=== PATIENT | female | born 1970 | race African-American/Black ===

== ENCOUNTER 2020-11-13 11:14 | Emergency (ER) | payer MEDICAID ==
[~2020-11-13] VITALS: Ht 162.6 cm; Wt 97.5 kg
[~2020-11-13 11:14] MED LIST: NOHOMEMEDICATIONS; XANAX 0.25 MG0.25 MG PO
[2020-11-13] MEDS ORDERED: ROXICODONE5 M2 PO (11:31)
[2020-11-13] MEDS ORDERED: TRAMADOL 50 MG50 MG PO (11:31)
[2020-11-13] MEDS ORDERED: AMBIEN5 MG PO (11:31)
[2020-11-13] MEDS ORDERED: NEURONTIN 300M300 M2 PO (11:32)
[2020-11-13 11:55] LABS: HEMATOCRIT 45.1 % (37.0-47.0); HEMOGLOBIN 15.1 gm/dL (12.0-15.0); MCH 27.8 pg (26.0-34.0); MCHC 33.4 g/dL (28.0-37.0); MCV 83.3 fL (80.0-100.0); MPV 7.4 fl. (7.2-11.1); NUCLEATED RBCS 0 /100WBC; PLATELET COUNT* 322 thou/uL (150-400); RBC 5.41 mil/uL (4.20-5.00); RDW-CV 15.9 % (10.5-14.5); WBC 10.7 thou/uL (4.0-11.0)
[2020-11-13] MEDS ORDERED: SPIRONOLACTONE25 MG PO (11:56)
[2020-11-13 12:04] LABS: CALCIUM 9.5 mg/dL (8.5-10.1); CREATININE 1.2 mg/dL (0.6-1.3)
[2020-11-13 12:09] LABS: ALBUMIN 3.4 g/dL (3.4-5.0); TOTAL BILIRUBIN 0.2 mg/dL (<0.1-1.0); TOTAL PROTEIN 8.2 g/dL (6.4-8.2)
[2020-11-13 12:46] LABS: ABSOLUTE EOSINOPHILS 0.2 thou/uL (0.0-0.7); ABSOLUTE MONOCYTES 0.5 thou/uL (0.0-1.2); ATYPICAL LYMPHS 10 %; PLATELET ESTIMATE ADEQUATE
[2020-11-13 12:48] LABS: LARGE PLATELETS FEW
[2020-11-13 12:49] LABS: GIANT PLATELETS OCCASIONAL
[2020-11-13 12:58] LABS: URINE BILIRUBIN NEGATIVE (Negative); URINE BLOOD TRACE (Negative); URINE CLARITY CLEAR; URINE COLOR YELLOW; URINE GLUCOSE-RANDOM NEGATIVE (Negative); URINE KETONES NEGATIVE (Negative); URINE LEUKOCYTES-REFLEX 1+ (Negative); URINE NITRITE-REFLEX NEGATIVE (Negative); URINE PROTEIN NEGATIVE (Negative); URINE SPECIFIC GRAVITY 1.025 (1.005-1.030); URINE UROBILINOGEN 0.2 E.U./dl (0.2-1.0)
[2020-11-13 13:04] LABS: SQUAMOUS >10 Many /LPF (0-3)
[2020-11-13 13:05] LABS: BACTERIA-REFLEX 1-9 Few /HPF (None Seen); CASTS None Seen /LPF (None Seen); URINE RBC 0-2 Rare /HPF (0-2); URINE WBC-REFLEX 6-15 Few /HPF (0-5)
[2020-11-13 13:06] LABS: CRYSTALS None Seen /LPF (None Seen)
[2020-11-13] MEDS ORDERED: KEFLEX500 M1 PO (13:08)
[2020-11-13] MEDS ORDERED: HYDROCHLOROTH12.5 M1 PO (13:08)
[2020-11-13 13:37] VITALS: BP 156/84
--- NOTE | 2020-11-13 16:33 | EKG ---
[place] [address] ELECTROCARDIOGRAM REPORT Name: NICOLE SANTANA Room: [facility]#: [id number] Admission: 11/13/20 Attend Phys: Discharge: 11/13/20 Date of : 74 Date of Service: 11/13/20 1141 Report #: [id number] THIS REPORT FOR: //name// 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: [facility] : 1970 Requested By: Bhavin Chavez Order Number: [id number] MD: Ruben Bruno Measurements Intervals [place] Rate: 96 P: 61 [place]: 160 QRS: 69 QRSD: 89 T: 32 QT: 353 QTc: 447 Interpretive Statements Sinus rhythm Probable left atrial enlargement Delayed R wave progression no previous ECG available for comparison Electronically Signed On 11-13-2020 16:33:43 TRAVEL GUIDE by Ruben Bruno [email or web address] <ELECTRONICALLY SIGNED> By: Ruben Bruno MD, [facility] 11/13/20 1633 1141 114 Ruben Bruno MD, [facility] /EPI
== END 2020-11-13 13:38 | disposition home or self-care (01) ==
LOC: M.ERS 11:14
PROVIDERS: Emergency Medicine Emergency Medical Services
DX: N39.0 Urinary tract infection, site not specified (principal); I10 Essential (primary) hypertension; R21 Rash and other nonspecific skin eruption; F17.210 Nicotine dependence, cigarettes, uncomplicated; Z79.899 Other long term (current) drug therapy

== ENCOUNTER 2021-06-28 13:30 | Emergency (ER) | payer MEDICAID ==
[~2021-06-28] VITALS: Ht 162.6 cm; Wt 104.3 kg
[~2021-06-28 13:30] MED LIST changes: +AMBIEN5 MG PO; +HYDROCHLOROTH12.5 M1 PO; +KEFLEX500 M1 PO; +NEURONTIN 300M300 M2 PO; +ROXICODONE5 M2 PO; +SPIRONOLACTONE25 MG PO; +TRAMADOL 50 MG50 MG PO
[2021-06-28] MEDS ORDERED: MEDROLDOSEPACK PO (15:18)
[2021-06-28 15:32] VITALS: BP 127/70
== END 2021-06-28 15:32 | disposition home or self-care (01) ==
LOC: M.ERS 13:30
DX: M72.2 Plantar fascial fibromatosis (principal); M76.62 Achilles tendinitis, left leg; F17.210 Nicotine dependence, cigarettes, uncomplicated; Z87.42 Personal history of other diseases of the female genital tract

== ENCOUNTER 2021-09-03 10:45 | Inpatient (IN) | payer MEDICAID ==
[~2021-09-03] VITALS: Ht 162.6 cm; Wt 87.5 kg
--- NOTE | ~2021-09-03 | CON ---
[address] [address] CONSULTATION Name: SANTANANICOLE Room: [address] IN .R.#: [id number] Admission: 09/03/21 Attend Phys: Gia Zuniga Discharge: Date of : 74 Report #: [id number] THIS REPORT FOR: cc: GARIMA SINHA,GARIMA Yap,Amber Swift MD ~ DATE OF CONSULTATION: 09/04/2021 REASON FOR CONSULTATION: Epigastric pain, nausea, vomiting and dyspepsia. HISTORY OF PRESENT ILLNESS: This is a 50-year-old female with history of ovarian and vulvar cancer, status post surgery and chemoradiation therapy, which was completed in 2019. The patient reports that she presented to the emergency room because she had significant amount of epigastric pain, nausea, vomiting and was unable to eat. She also had noticed that her urine color had turned dark. She denies any hematochezia or melena. She was found to be anemic with hemoglobin of 10. She has never had upper or lower endoscopy. PAST MEDICAL HISTORY: Significant for history of ovarian and vulvar cancer, status post surgery and chemoradiation, hypertension, insomnia, chronic pain, dysuria. ALLERGIES: No known drug allergy. MEDICATIONS: Please refer to MAR. SOCIAL HISTORY: The patient has history of vulvar and ovarian cancer and has been treated for the same and currently in remission, currently is in remission. The patient denies tobacco or alcohol use. FAMILY HISTORY: Negative for GI malignancy. PHYSICAL EXAMINATION: VITAL SIGNS: Reveals blood pressure of 114/66, respirations 18, pulse 119, temperature 97.4. LUNGS: Clear. CARDIOVASCULAR: Regular. ABDOMEN: Soft, tender to palpation in the epigastric region. Bowel sounds are positive. NEUROLOGIC: The patient is alert and oriented x 3. LABORATORY DATA: Reveal sodium of 139, potassium 4.0, BUN is 20, creatinine 1.3, AST is 30, ALT is 30, alkaline phosphatase 122, lipase is 141. Iron saturation is 15. Serum iron is 22, TIBC is 148. UA reveals evidence [place] [address] CONSULTATION Name: NICOLE SANTANA Room: [address] IN [facility]#: [id number] Admission: 09/03/21 Attend Phys: Gia Zuniga Discharge: Date of : 74 Report #: [id number] IMAGING: CT of abdomen and pelvis was obtained. CT of abdomen and pelvis reveals fluid collection arising from the pylorus for pyloric channel would be suggestive of pyloric channel ulcer. There is no evidence of acute inflammatory process. Uterus and ovaries are atrophic, consistent with the patient's age. ASSESSMENT AND PLAN: The patient with abdominal pain, dyspepsia, and anemia of iron deficiency. We will consider upper scope tomorrow at 8:00. She will need a colonoscopy at some point as she is anemic. By: 1523 1953Amber Yap MD /kayy
[~2021-09-03 10:45] MED LIST changes: +MEDROLDOSEPACK PO
[2021-09-03 11:12] VITALS: BP 146/101
[2021-09-03] MEDS ORDERED: FLUOXETINE HCL40 MG PO (11:19)
[2021-09-03] MEDS ORDERED: DICLOFENAC SOD PO (11:19)
[2021-09-03 11:37] LABS: URINE BLOOD 1+ (Negative); URINE CLARITY CLEAR; URINE COLOR YELLOW; URINE GLUCOSE-RANDOM NEGATIVE (Negative); URINE KETONES NEGATIVE (Negative); URINE NITRITE-REFLEX NEGATIVE (Negative); URINE PROTEIN 1+ (Negative); URINE SPECIFIC GRAVITY >= 1.030 (1.005-1.030)
[2021-09-03 11:44] LABS: ABSOLUTE BASOPHILS 0.1 thou/uL (0.0-0.2); ABSOLUTE LYMPHOCYTES 3.1 thou/uL (0.8-5.3); ABSOLUTE MONOCYTES 0.9 thou/uL (0.0-1.2); ABSOLUTE NEUTROPHILS 10.6 thou/uL (1.6-8.1); BASOPHILS 0.9 %; EOSINOPHILS 0.3 %; HEMATOCRIT 33.6 % (37.0-47.0); HEMOGLOBIN 10.8 gm/dL (12.0-15.0); LYMPHOCYTES 20.9 %; MCH 23.8 pg (26.0-34.0); MCHC 32.2 g/dL (28.0-37.0); MCV 73.9 fL (80.0-100.0); MONOCYTES 6.2 %; MPV 7.4 fl. (7.2-11.1); NUCLEATED RBCS 0 /100WBC; PLATELET COUNT* 451 thou/uL (150-400); POLYS 71.7 %; RBC 4.55 mil/uL (4.20-5.00); RDW-CV 14.8 % (10.5-14.5); WBC 14.8 thou/uL (4.0-11.0)
[2021-09-03 11:47] LABS: URINE BILIRUBIN 1+ (Negative); URINE LEUKOCYTES-REFLEX 2+ (Negative)
[2021-09-03 11:48] LABS: CASTS None Seen /LPF (None Seen); SQUAMOUS 4-10 Moderate /LPF (0-3)
[2021-09-03 11:49] LABS: CRYSTALS None Seen /LPF (None Seen); URINE RBC 3-10 Few /HPF (0-2)
[2021-09-03 11:51] LABS: CALCIUM 10.1 mg/dL (8.5-10.1); CREATININE 1.3 mg/dL (0.6-1.3)
[2021-09-03 11:56] LABS: ALBUMIN 2.8 g/dL (3.4-5.0); TOTAL BILIRUBIN 0.3 mg/dL (<0.1-1.0); TOTAL PROTEIN 9.1 g/dL (6.4-8.2)
--- NOTE | 2021-09-03 11:59 | EKG ---
[place] [address] ELECTROCARDIOGRAM REPORT Name: NICOLE SANTANA Room: [facility]#: [id number] Admission: 09/03/21 Attend Phys: Discharge: Date of : 74 Date of Service: 09/03/21 1140 Report #: [id number] THIS REPORT FOR: //name// [facility] ED Test Date: 2021-09-03 Test Time: 11:40:28 Pat Name: NICOLE SANTANA Department: Room: Gender: Cherry Dipper: TJBradley : 1970 Requested By: Ching Huang Order Number: [id number] MD: Cristhian Zamora Measurements Intervals [place] Rate: 127 P: 65 GA: 154 QRS: 49 QRSD: 85 T: 148 QT: 297 QTc: 432 Interpretive Statements Sinus tachycardia Left atrial enlargement Probable left ventricular hypertrophy Abnrm T, consider LV strain or ischemia Compared to ECG 11/13/2020 11:41:30 Possible ischemia now present Sinus rate has increased Poor R-wave progression no longer present Electronically Signed On 09-03-2021 11:59:36 LAYOUT WORKER by Cristhian Zamora [email or web address] <ELECTRONICALLY SIGNED> By: Cristhian Zamora MD, FACC 09/03/21 1159 1140 1140 Cristhian Zamora MD, FACC /EPI
[2021-09-03] MEDS ORDERED: PROSCAR 5MG TABL5 MG PO (15:06)
[2021-09-03] MEDS ORDERED: NORVASC10 MG PO (15:06)
[2021-09-03] MEDS ORDERED: MICARDIS 80 MG80 MG PO (15:07)
[2021-09-03] MEDS ORDERED: LIDOCAINE 2%2 %/5 GM (15:08)
[2021-09-03 19:12] VITALS: BP 179/74
[2021-09-03 23:35] VITALS: BP 168/68
[2021-09-04 00:19] VITALS: BP 148/76
[2021-09-04 04:00] VITALS: BP 126/54
[2021-09-04 08:00] VITALS: BP 141/70
--- NOTE | 2021-09-04 09:39 | NUR ---
Pt is admitted to the hospital on 09/03/21 with Sepsis due to a UTI and Pneumonia. Pt is alert and oriented. Pt lives in a Condo with boyfriend (Livan). Pt has a hx of ovarian and vulvar cancer. Pt reports no hx of HH, DME, and SNF. Pt reports she saw her PCP - 1 month ago. Pt fills her prescriptions at [facility]. Discussed at length in home assistance under pt's [place] Medicaid. She is asking about assistance she can receive in her home. Will start the referral process. CM to continue following for discharge planning.
--- NOTE | 2021-09-04 11:50 | EKG ---
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: : 1970 Requested By: Caryn Novak Order Number: [id number] Zeeshan MD: Cristhian Zamora Measurements Intervals [place] Rate: 119 P: 81 [place]: 157 QRS: 60 QRSD: 87 T: 197 QT: 320 QTc: 451 Interpretive Statements Sinus tachycardia Probable LVH with secondary repol abnrm Compared to ECG 09/03/2021 11:40:28 Atrial abnormality no longer present Electronically Signed On 09-04-2021 11:50:04 FOUR CORNER FORMER MACHINE OPERATOR by Crsithian Zamora [email or web address] <ELECTRONICALLY SIGNED> By: Cristhian Zamora MD, [facility] 09/04/21 1150 0946 0946 Cristhian Zamora MD, [facility] /EPI
[2021-09-04 12:00] VITALS: BP 114/66
[2021-09-04 16:00] VITALS: BP 124/62
[2021-09-04 20:00] VITALS: BP 102/60
[2021-09-05] VITALS: BP 123/53
[2021-09-05 04:00] VITALS: BP 122/56
[2021-09-05 04:34] LABS: HEMATOCRIT 27.7 % (37.0-47.0); MCH 23.9 pg (26.0-34.0); MCHC 31.4 g/dL (28.0-37.0); MPV 7.3 fl. (7.2-11.1); RBC 3.65 mil/uL (4.20-5.00); RDW-CV 14.8 % (10.5-14.5); WBC 10.2 thou/uL (4.0-11.0)
[2021-09-05 04:44] LABS: HEMOGLOBIN 8.7 gm/dL (12.0-15.0)
--- NOTE | 2021-09-05 05:08 | NUR ---
ASSUMED CARE OF PT AFTER REPORT AT 1930. PT A&OX4. VSS. PHYSICAL ASSESSMENT COMPLETED AND CHARTED. PT ON RA. PT TRACING ST/ST- HR 120'S-140'S WITH ACTIVITY. PT UPADLIB TO RESTROOM. PT WITH ABDOMINAL PAIN-MED GIVEN PER NOV. INSTRUCTED ON NPO POST MIDNIGHT FOR EGD TODAY-COMMUNICATES UNDERSTANDING. LORETO LIGHT WITHIN REACH.
[2021-09-05 05:11] LABS: CREATININE 1.1 mg/dL (0.6-1.3); MAGNESIUM 1.5 mg/dL (1.8-2.4); POTASSIUM 3.4 mmol/L (3.5-5.1)
--- NOTE | 2021-09-05 07:20 | NUR ---
CHANGE OF SHIFT REPORT GIVEN PATIENT SEEN IN BED WATCHING TV ASSUMED PATIENT CARE
[2021-09-05 08:00] VITALS: BP 117/59
[2021-09-05 11:25] VITALS: BP 142/70
[2021-09-05 15:50] VITALS: BP 117/59
[2021-09-05 20:00] VITALS: BP 105/57
[2021-09-06 00:16] VITALS: BP 103/69
[2021-09-06 04:00] VITALS: BP 110/73
--- NOTE | 2021-09-06 05:52 | NUR ---
ASSUMED CARE OF PT AFTER REPORT AT 1930. PT A&OX4. VSS. PHYSICAL ASSESSMENT COMPLETED AND CHARTED. PT ON RA. PT TRACING SR/ST-HR 140'S-150'S WITH ACTIVITY. PT COMPLAINED OF VAGINAL PAIN-MED GIVEN PER MAR. MAINTAINED ON FULL LIQUIDS ORDERED. NO EPISODE OF NAUSEA/VOMITING. CALL LIGHT WITHIN REACH.
--- NOTE | 2021-09-06 07:10 | NUR ---
CHNAGE OF SHIFT REPORT GIVEN PATIENT SEEN AT BEDSIDE, IN BED ON PHONE ASSUMED PATIENT CARE
[2021-09-06 08:00] VITALS: BP 114/68
[2021-09-06 12:09] VITALS: BP 106/54
[2021-09-06] MEDS ORDERED: CEFDINIR300 MG PO (12:57)
[2021-09-06 13:18] VITALS: BP 106/54
[2021-09-06 15:50] VITALS: BP 117/61
--- NOTE | 2021-09-06 17:00 | NUR ---
discharge to home iv abd heart monitor removed rosio ventura returned dc instructions given and signed copies given patient walked out to waiting car
[2021-09-07 19:07] LABS: GLOBULIN TOTAL 4.1 g/dL (2.2-3.9); M-SPIKE Not Observed g/dL (Not Observed)
== END 2021-09-06 17:00 | disposition home or self-care (01) | DRG 871 ==
LOC: M.ERS 10:45 → M.2W 14:47 → M.TBA-ER 14:47 → M.2W 23:41
PROVIDERS: Internal Medicine; Physician Assistant; ADMIT Internal Medicine; ATTEND Internal Medicine
PROC: 0DB98ZX Excision of Duodenum, Via Natural or Artificial Opening Endoscopic, Diagnostic (ICD-10-PCS; principal; 2021-09-05)
DX: A41.9 Sepsis, unspecified organism (principal); N17.0 Acute kidney failure with tubular necrosis; J15.6 Pneumonia due to other Gram-negative bacteria; N39.0 Urinary tract infection, site not specified; E44.1 Mild protein-calorie malnutrition; G89.29 Other chronic pain; R10.30 Lower abdominal pain, unspecified; G47.00 Insomnia, unspecified; R10.13 Epigastric pain; D50.9 Iron deficiency anemia, unspecified; I10 Essential (primary) hypertension; F41.9 Anxiety disorder, unspecified; G62.9 Polyneuropathy, unspecified; R73.9 Hyperglycemia, unspecified; K44.9 Diaphragmatic hernia without obstruction or gangrene; K26.9 Duodenal ulcer, unspecified as acute or chronic, without hemorrhage or perforation; Z85.43 Personal history of malignant neoplasm of ovary; Z85.89 Personal history of malignant neoplasm of other organs and systems; Z92.3 Personal history of irradiation; Z68.33 Body mass index [BMI] 33.0-33.9, adult; Z20.822 Contact with and (suspected) exposure to COVID-19; Z28.21 Immunization not carried out because of patient refusal

== ENCOUNTER 2021-09-26 19:53 | Inpatient (IN) | payer MEDICAID ==
[~2021-09-26] VITALS: Ht 162.6 cm; Wt 90.7 kg
--- NOTE | ~2021-09-26 | CON ---
[address] [address] CONSULTATION Name: NICOLE SANTANA Room: [address] IN M.R.#: [id number] Admission: 09/26/21 Attend Phys: Travon Pink MD Discharge: Date of : 74 Report #: [id number] THIS REPORT FOR: cc: GARIMA SINHA,GARIMA Yap,Amber Swift MD ~ DATE OF CONSULTATION: 09/27/2021 REASON FOR CONSULTATION: Anemia and melena with abdominal pain. HISTORY OF PRESENT ILLNESS: This is a 50-year-old female with history of abdominal pain and melena, who underwent upper endoscopy 3 weeks ago. She was found to have a large ulcer in the second portion of the duodenum. She was subsequently placed on Carafate and double dose of PPI and was told to follow up in 2 months for upper and lower endoscopy. The patient reports that she only took 10 pills and did not complete her regimen. She started having abdominal pain and black stool. She denies any nausea, vomiting or diarrhea. She had a diet today and also had BM earlier today. PAST MEDICAL HISTORY: Significant for a history of vulvar cancer, status post chemoradiation; ovarian cancer; hypertension; duodenal ulcer; anxiety; neuropathy. ALLERGIES: No known drug allergy. MEDICATIONS: Please refer to MAR. SOCIAL HISTORY: The patient denies alcohol use, but admits to tobacco use. FAMILY HISTORY: Negative for GI malignancy. PHYSICAL EXAMINATION: VITAL SIGNS: Reveal normal vitals. LUNGS: Clear. CARDIOVASCULAR: Regular. ABDOMEN: Soft, tender to palpation in the periumbilical region. Bowel sounds are positive. NEUROLOGIC: The patient is alert and oriented x 3. There is no focal neurologic deficit. LABORATORY DATA: Reveal sodium of 137, potassium 3.5, BUN is 18, creatinine 1.3, glucose is 133. Liver function tests are all within normal limits. WBC is 12.7 with hemoglobin of 8.4, down from 10.8 on 09/03. Platelets are 302. IMAGING: CT angiogram of abdomen and pelvis [place]. [place] [address] CONSULTATION Name: NICOLE SANTANA Room: [address] IN [facility]#: [id number] Admission: 09/26/21 Attend Phys: Travon Pink MD Discharge: Date of : 74 Report #: [id number] atherosclerotic calcification of the abdominal aorta without dissection or aneurysm. There is also duodenal diverticulum and multiple masses within the uterus, possibly representing leiomyomas. ASSESSMENT AND PLAN: The patient with abdominal pain, drop in hemoglobin since 3 weeks ago and known history of duodenal ulcer. We will consider upper endoscopy to evaluate the ulcer and colonoscopy since the patient has lower abdominal pain. We will make further recommendation based on finding. Meanwhile, she should continue her PPI therapy. By: 1256 1909Amber Yap MD /kayy
[~2021-09-26 19:53] MED LIST changes: +CEFDINIR300 MG PO; +DICLOFENAC SOD PO; +FLUOXETINE HCL40 MG PO; +LIDOCAINE 2%2 %/5 GM; +MICARDIS 80 MG80 MG PO; +NORVASC10 MG PO; +PROSCAR 5MG TABL5 MG PO
[2021-09-26 19:57] VITALS: BP 163/62
[2021-09-26 20:43] LABS: EOSINOPHILS 0.1 %; MCV 73.2 fL (80.0-100.0); MPV 7.2 fl. (7.2-11.1)
[2021-09-26 20:44] LABS: ABSOLUTE BASOPHILS 0.1 thou/uL (0.0-0.2); ABSOLUTE LYMPHOCYTES 2.1 thou/uL (0.8-5.3); ABSOLUTE MONOCYTES 0.8 thou/uL (0.0-1.2); ABSOLUTE NEUTROPHILS 10.5 thou/uL (1.6-8.1); BASOPHILS 1.1 %; HEMATOCRIT 24.7 % (37.0-47.0); LYMPHOCYTES 15.7 %; MCH 23.6 pg (26.0-34.0); MCHC 32.2 g/dL (28.0-37.0); MONOCYTES 5.8 %; NUCLEATED RBCS 0 /100WBC; PLATELET COUNT* 326 thou/uL (150-400); POLYS 77.3 %; RBC 3.38 mil/uL (4.20-5.00); RDW-CV 15.5 % (10.5-14.5); WBC 13.6 thou/uL (4.0-11.0)
[2021-09-26 20:55] LABS: CREATININE 0.9 mg/dL (0.6-1.3); POTASSIUM 3.3 mmol/L (3.5-5.1)
[2021-09-26 21:05] LABS: ALBUMIN 2.4 g/dL (3.4-5.0); TOTAL BILIRUBIN 0.3 mg/dL (<0.1-1.0); TOTAL PROTEIN 7.5 g/dL (6.4-8.2)
[2021-09-26 23:07] LABS: URINE BILIRUBIN NEGATIVE (Negative); URINE BLOOD 3+ (Negative); URINE COLOR YELLOW; URINE GLUCOSE-RANDOM NEGATIVE (Negative); URINE KETONES 1+ (Negative); URINE LEUKOCYTES-REFLEX 1+ (Negative); URINE NITRITE-REFLEX NEGATIVE (Negative); URINE PROTEIN NEGATIVE (Negative); URINE SPECIFIC GRAVITY <= 1.005 (1.005-1.030); URINE UROBILINOGEN 0.2 E.U./dl (0.2-1.0)
[2021-09-26 23:12] LABS: URINE CLARITY SL HAZY
[2021-09-26 23:15] LABS: RENAL EPITHELIAL CELLS 0-3 Few /LPF (None Seen); SQUAMOUS 0-3 Few /LPF (0-3); TRANSITIONAL EPITHEL CELL 0-3 Few /LPF (None Seen); URINE WBC-REFLEX >25 Many /HPF (0-5)
[2021-09-26 23:16] LABS: BACTERIA-REFLEX >30 Many /HPF (None Seen); COARSE GRANULAR CASTS 0-3 Few /LPF (None Seen); CRYSTALS None Seen /LPF (None Seen); FINE GRANULAR CASTS 0-3 Few /LPF (None Seen); MUCUS 4-6 Moderate strn/LPF (None Seen); YEAST-REFLEX Present (None Seen)
[2021-09-27 04:00] VITALS: BP 128/69
[2021-09-27 07:20] VITALS: BP 123/69
--- NOTE | 2021-09-27 08:23 | NUR ---
REFER TO BLOOD TRANSFUSION RECORD FOR FURTHER DOCUMENTATION
[2021-09-27 08:59] VITALS: BP 141/69
--- NOTE | 2021-09-27 10:10 | EKG ---
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: [place] : 1970 Requested By: Sherie Aguilar Order Number: [id number] MD: Darrell Adams Measurements Intervals [place] Rate: 127 P: 71 VT: 124 QRS: 66 QRSD: 78 T: 49 QT: 337 QTc: 491 Interpretive Statements Sinus tachycardia Left ventricular hypertrophy Borderline prolonged QT interval Compared to ECG 09/04/2021 09:46:50 No significant changes Electronically Signed On 09-27-2021 10:10:48 MATERIAL HANDLER 2ND SHIFT by Darrell Adams [email or web address] <ELECTRONICALLY SIGNED> By: Darrell Adams MD, [facility] 09/27/21 1010 01 01 Darrell Adams MD, [facility] /EPI
[2021-09-27 11:00] VITALS: BP 138/73
[2021-09-27 13:18] LABS: HEMATOCRIT 25.8 % (37.0-47.0); HEMOGLOBIN 8.4 gm/dL (12.0-15.0); MCH 24.8 pg (26.0-34.0); MCHC 32.6 g/dL (28.0-37.0); MPV 7.1 fl. (7.2-11.1); NUCLEATED RBCS 0 /100WBC; PLATELET COUNT* 302 thou/uL (150-400); RBC 3.39 mil/uL (4.20-5.00); RDW-CV 17.2 % (10.5-14.5); WBC 12.7 thou/uL (4.0-11.0)
[2021-09-27 13:32] LABS: ALBUMIN 2.3 g/dL (3.4-5.0); CALCIUM 8.9 mg/dL (8.5-10.1); CREATININE 1.3 mg/dL (0.6-1.3); MAGNESIUM 1.5 mg/dL (1.8-2.4); POTASSIUM 3.5 mmol/L (3.5-5.1); TOTAL BILIRUBIN 0.4 mg/dL (<0.1-1.0); TOTAL PROTEIN 7.1 g/dL (6.4-8.2)
[2021-09-27 13:49] LABS: ABSOLUTE MONOCYTES 1.1 thou/uL (0.0-1.2); ABSOLUTE NEUTROPHILS 9.5 thou/uL (1.6-8.1); ANISOCYTOSIS 1+; HYPOCHROMASIA 1+; METAMYELOCYTES 1 %; MYELOCYTES 1 %; PLATELET ESTIMATE ADEQUATE
[2021-09-27 20:00] VITALS: BP 120/63
[2021-09-28] VITALS: BP 126/66
[2021-09-28 04:00] VITALS: BP 133/62
[2021-09-28 04:21] LABS: HEMATOCRIT 23.3 % (37.0-47.0); HEMOGLOBIN 7.7 gm/dL (12.0-15.0); MCH 24.8 pg (26.0-34.0); MCHC 32.8 g/dL (28.0-37.0); MCV 75.5 fL (80.0-100.0); RBC 3.09 mil/uL (4.20-5.00); WBC 10.9 thou/uL (4.0-11.0)
--- NOTE | 2021-09-28 05:58 | NUR ---
Alert and oriented x 4. She has been doing a bowel prep. She has mostly been drinking GoLytely all of this shift. BM is dark brown and liquid. She is going to be NPO at 0800. She did request pain and nausea med x 1 this shift. IV in her L antecubital began to leak and was painful. New IV started, 22G in L wrist/forearm. Will continue to observe.
[2021-09-28 08:30] VITALS: BP 111/51
[2021-09-28 11:54] VITALS: BP 127/67
--- NOTE | 2021-09-28 17:34 | NUR ---
CM ASSESSMENT: PT A&O, INDEPENDENT WITH ADL'S, AND ACTIVE. PT RESIDES AT HOME WITH HER SIGNIGIFICANT OTHER. PT USES 0 DME. PT HAS 0 HX OF HH OR SNF. NO CM D/C PLANNING NEEDS. CM WILL REMAIN AVAILABLE TO ASSIST AND FOLLOW NEEDED.
[2021-09-28 20:00] VITALS: BP 131/70
[2021-09-29 01:02] VITALS: BP 157/75
[2021-09-29 06:13] VITALS: BP 125/66
[2021-09-29 08:00] VITALS: BP 135/65
--- NOTE | 2021-09-29 11:15 | NUR ---
Nutrition: Pt admitted with GIB. Seen for wt change consult. Pt stated she usually weighs 230#, but was told here that she weighs 200#. She had not noticed significant wt loss, but said that some loss might be d/t "Covid and the ulcer." She is quite happy to have lost some wt, and doesn't feel that she will lose anymore. She is toelrating regular diet now, good po intake. Recommended MVI. Labs, meds noted. Low risk.
[2021-09-29 11:48] LABS: ABSOLUTE BASOPHILS 0.1 thou/uL (0.0-0.2); ABSOLUTE EOSINOPHILS 0.1 thou/uL (0.0-0.7); ABSOLUTE LYMPHOCYTES 2.4 thou/uL (0.8-5.3); ABSOLUTE MONOCYTES 0.6 thou/uL (0.0-1.2); ABSOLUTE NEUTROPHILS 7.3 thou/uL (1.6-8.1); BASOPHILS 1.4 %; EOSINOPHILS 1.1 %; HEMATOCRIT 23.2 % (37.0-47.0); HEMOGLOBIN 7.4 gm/dL (12.0-15.0); LYMPHOCYTES 22.8 %; MCH 24.5 pg (26.0-34.0); MCV 76.5 fL (80.0-100.0); MONOCYTES 5.6 %; MPV 7.3 fl. (7.2-11.1); NUCLEATED RBCS 0 /100WBC; PLATELET COUNT* 299 thou/uL (150-400); POLYS 69.1 %; RBC 3.03 mil/uL (4.20-5.00); RDW-CV 17.2 % (10.5-14.5); WBC 10.6 thou/uL (4.0-11.0)
[2021-09-29 13:04] VITALS: BP 136/70
--- NOTE | 2021-09-29 13:05 | NUR ---
PLAN OF CARE: PT NOT MEDICALLY STABLE FOR D/C TODAY. GI CONSULTED. NO CM D/C PLANNING NEEDS ANTICIPATED. CM WILL REMAIN AVAILABLE TO ASSIST AND FOLLOW NEEDED.
[2021-09-29 17:38] VITALS: BP 144/72
--- NOTE | 2021-09-29 18:08 | NUR ---
PT PROGRESSING WELL TOWARDS DC GOALS. PT UP AD RONNI IN HER ROOM WITH STEADY GAIT. PT TOOK A SHOWER THIS AFTERNOON, WITHOUT DIFFICULTY. VSS AFEBRILE. PT CONTINUES TO BE SR ON THE TELE MONITOR.
[2021-09-29 19:37] VITALS: BP 122/68
[2021-09-30 02:25] VITALS: BP 136/64
[2021-09-30 04:51] LABS: ABSOLUTE BASOPHILS 0.1 thou/uL (0.0-0.2); ABSOLUTE EOSINOPHILS 0.2 thou/uL (0.0-0.7); ABSOLUTE LYMPHOCYTES 2.2 thou/uL (0.8-5.3); ABSOLUTE MONOCYTES 0.7 thou/uL (0.0-1.2); ABSOLUTE NEUTROPHILS 6.9 thou/uL (1.6-8.1); BASOPHILS 0.6 %; EOSINOPHILS 1.8 %; HEMATOCRIT 21.6 % (37.0-47.0); HEMOGLOBIN 7.1 gm/dL (12.0-15.0); LYMPHOCYTES 21.9 %; MCH 24.9 pg (26.0-34.0); MCHC 32.7 g/dL (28.0-37.0); MCV 76.3 fL (80.0-100.0); MONOCYTES 6.5 %; MPV 7.1 fl. (7.2-11.1); NUCLEATED RBCS 0 /100WBC; PLATELET COUNT* 295 thou/uL (150-400); POLYS 69.2 %; RBC 2.83 mil/uL (4.20-5.00); RDW-CV 17.2 % (10.5-14.5)
--- NOTE | 2021-09-30 04:59 | NUR ---
PATIENT HAS REMAINED ALERT AND ORIENTED X 4 THROUGHOUT THE SHIFT AND RESTING QUIETLY ON HOURLY ROUNDS. MEDICATED X 1 FOR RECTAL/VULVA PAIN WITH BM'S X 1 TO GOOD EFFECT. MEDS PER ORDER. SR ON THE MONITOR. HOPES FOR DISCHARGE TODAY.
[2021-09-30 05:22] LABS: % SATURATION 15 % (20-39); IRON 21 ug/dL (50-175)
[2021-09-30 06:43] VITALS: BP 131/72
[2021-09-30] MEDS ORDERED: CARAFATE 1 GM TA1 G1 PO (08:03)
[2021-09-30] MEDS ORDERED: PROTONIX40 M2 PO (08:03)
[2021-09-30] MEDS ORDERED: MIRALAX17 GM PO (08:03)
[2021-09-30 08:05] VITALS: BP 142/71
[2021-09-30 08:48] LABS: HEMATOCRIT 22.8 % (37.0-47.0); HEMOGLOBIN 7.3 gm/dL (12.0-15.0); MCH 24.7 pg (26.0-34.0); MCHC 32.2 g/dL (28.0-37.0); MCV 76.7 fL (80.0-100.0); MPV 7.2 fl. (7.2-11.1); RBC 2.97 mil/uL (4.20-5.00); RDW-CV 17.2 % (10.5-14.5); WBC 9.5 thou/uL (4.0-11.0)
--- NOTE | 2021-09-30 10:10 | NUR ---
PLAN OF CARE: CM CONTINUES TO FOLLOW FOR CM D/C PLANNING NEEDS. NO CM D/C PLANNING NEEDS ANTICIPATED AT THIS TIME. PT TO D/C HOME WITH SELF-CARE WHEN MEDICALLY STABLE. CM WILL REMAIN AVAILABLE TO ASSIST AND FOLLOW NEEDED.
[2021-09-30 11:54] VITALS: BP 129/62
--- NOTE | 2021-09-30 14:49 | NUR ---
THIS RN REACHED OUT TO DR STEVE TO ASK IF PT CLEAR FROM GI TO D/C
[2021-09-30 14:54] VITALS: BP 129/62
--- NOTE | 2021-09-30 14:57 | NUR ---
dr Yap ok with d/c. Dr Villa contacted to clarify if pt needs PO abx on d/c or not. Awaiting call back from Allen.
--- NOTE | 2021-09-30 15:27 | NUR ---
WENT OVER D/C PAPERWORK WITH PT. PT VERBALIZED UNDERSTNADING. ALL QUESTIONS ANSWERED. IV AND TELE REMOVED.
[2021-10-01 07:08] LABS: GLYCOHEMOGLOBIN (HGB A1C) 5.6 % (4.8-5.6)
--- NOTE | 2021-10-01 09:08 | PATH ---
[address] [address] PATHOLOGY RPT PROCEDURE Name: NICOLE POTTER Room: [address] IN .R.#: [id number] Admission: 09/26/21 Date of : 74 Discharge: 09/30/21 Report #: [id number] Path Case #: [id number] [facility] Accession Number: [id number] . 01 Material submitted: . duodenum - DUODENAL ULCER . 01 Clinical history: . EGD AND COLONOSCOPY . 02 Diagnosis: Duodenal ulcer biopsy: - Severe nonspecific active duodenitis, negative for granulomas, viral inclusions and dysplasia/adenomatous change. (LEANDRO:tino; 09/30/2021) QMS 09/30/2021 1157 Local . 02 Electronically signed: . Jc Rivera MD, Pathologist NPI- [id number] . 01 Gross description: . The specimen is received in formalin, labeled "Jewel Potterlondra, duodenal ulcer BX". Received is a single segment of pale tejada tissue measuring 0.3 cm in maximum dimensions. The specimen is entirely submitted in cassette A1. ([facility]; 09/29/2021) NRI/NRI 09/29/2021 2147 Local . 02 Pathologist provided ICD-10: K29.80 . 02 CPT . 738280 Specimen Comment: A courtesy copy of this report has been sent to [phone], [phone] Specimen Comment: [phone], Specimen Comment: Report sent to , DR SINHA / DR SALAZAR Specimen Comment: A duplicate report has been generated due to demographic updates. Performed at: [address] [place] [id number] [facility] [address], [place] [id number] MD Severo Francis MD Phone: [phone] Performed at: 02 [facility] [address], [place], [place] [id number] MD Jc Rivera MD Phone: [phone]
== END 2021-09-30 15:48 | disposition home or self-care (01) | DRG 871 ==
LOC: M.ERS 19:53 → M.2W 23:16 → M.TBA-ER 23:16 → M.2W 09-27 09:23
PROVIDERS: Internal Medicine; Internal Medicine Gastroenterology; Nurse Practitioner Family; ADMIT Internal Medicine; ATTEND Internal Medicine
PROC: 30233N1 Transfusion of Nonautologous Red Blood Cells into Peripheral Vein, Percutaneous Approach (ICD-10-PCS; principal; 2021-09-27)
PROC: 0DB98ZX Excision of Duodenum, Via Natural or Artificial Opening Endoscopic, Diagnostic (ICD-10-PCS; 2021-09-28)
PROC: 0DJD8ZZ Inspection of Lower Intestinal Tract, Via Natural or Artificial Opening Endoscopic (ICD-10-PCS; 2021-09-28)
DX: A41.9 Sepsis, unspecified organism (principal); K26.4 Chronic or unspecified duodenal ulcer with hemorrhage; N30.00 Acute cystitis without hematuria; G89.29 Other chronic pain; M79.606 Pain in leg, unspecified; I10 Essential (primary) hypertension; F41.9 Anxiety disorder, unspecified; G62.9 Polyneuropathy, unspecified; E83.42 Hypomagnesemia; R73.9 Hyperglycemia, unspecified; E66.9 Obesity, unspecified; K44.9 Diaphragmatic hernia without obstruction or gangrene; K64.4 Residual hemorrhoidal skin tags; K64.8 Other hemorrhoids; D50.9 Iron deficiency anemia, unspecified; Z85.43 Personal history of malignant neoplasm of ovary; Z82.49 Family history of ischemic heart disease and other diseases of the circulatory system; Z92.3 Personal history of irradiation; Z92.21 Personal history of antineoplastic chemotherapy; Z68.34 Body mass index [BMI] 34.0-34.9, adult; Z20.822 Contact with and (suspected) exposure to COVID-19

== ENCOUNTER 2021-10-11 15:25 | Emergency (ER) | payer MEDICAID ==
[~2021-10-11] VITALS: Ht 162.6 cm; Wt 90.7 kg
[~2021-10-11 15:25] MED LIST changes: +CARAFATE 1 GM TA1 G1 PO; +MIRALAX17 GM PO; +PROTONIX40 M2 PO
[2021-10-11] MEDS ORDERED: PERCOCET 5-3251 EACH PO (16:29)
[2021-10-11 16:45] VITALS: BP 153/82
== END 2021-10-11 16:46 | disposition home or self-care (01) ==
LOC: M.ERS 15:25
DX: K62.89 Other specified diseases of anus and rectum (principal); I10 Essential (primary) hypertension; F41.9 Anxiety disorder, unspecified; F17.210 Nicotine dependence, cigarettes, uncomplicated; Z79.899 Other long term (current) drug therapy